=== PATIENT | male | born 2000 | race Caucasian/White ===

== ENCOUNTER 2022-04-20 20:08 | Emergency (ER) | payer BC ==
[2022-04-20] MEDS ORDERED: Proparacaine 0.5% Opth 15 ML BOT ONE (20:40)
[2022-04-20] MEDS ORDERED: Fluorescein Opthalmic Strip ONE (20:40)
[2022-04-20] MEDS ORDERED: HYDROcodone/Acetaminophen 10/325 mg Tablet ONE (20:46)
[2022-04-20] MEDS ORDERED: Boostrix 0.5 ML (Tdap) VIAL ONE (20:46)
[2022-04-20] MEDS ORDERED: Oxymetazoline HCl 0.05% (30 ML BOT) ONE (22:01)
[2022-04-20] MEDS ORDERED: Lidocaine 1% MPF 2 ML VIAL ONE (22:23)
[2022-04-20] MEDS ORDERED: Bacitracin 1 PK ONE (22:23)
[2022-04-20] MEDS ORDERED: Lidocaine 2% PF 5 ML VIAL ONE (22:24)
[2022-04-20] MEDS ORDERED: Morphine 4 MG/ML VIAL ONE (23:27)
== END 2022-04-20 23:50 | disposition home or self-care (01) ==
LOC: ERS 20:08
DX: S02.2XXB Fracture of nasal bones, initial encounter for open fracture (principal); S02.32XA Fracture of orbital floor, left side, initial encounter for closed fracture; S02.40DA Maxillary fracture, left side, initial encounter for closed fracture; W21.03XA Struck by baseball, initial encounter
CPT/HCPCS: 70450; 70486; 90715; J2001; J2270